=== PATIENT | male | born 1970 | race Caucasian/White ===

== ENCOUNTER 2024-05-23 07:58 | Outpatient (CLI) | payer OTHER, SELFPAY | END 2024-05-23 07:59 | disposition home or self-care (01) | PROVIDERS: PCP Family Medicine; Visit Provider Family Medicine | DX: R03.0 Elevated blood-pressure reading, without diagnosis of hypertension (principal); E66.01 Morbid (severe) obesity due to excess calories; Z12.5 Encounter for screening for malignant neoplasm of prostate; Z13.6 Encounter for screening for cardiovascular disorders; Z13.1 Encounter for screening for diabetes mellitus | CPT/HCPCS: 80053; 80061; G0103 ==

== ENCOUNTER 2024-05-30 07:11 | Outpatient (CLI) | payer OTHER, SELFPAY ==
--- NOTE | 2024-05-30 09:03 | P.ANES_ITS ---
Anesthesia Charges Start Date/Time Anesthesia Start Date: 05/30/24 Anesthesia Start Time: 08:23 Stop Date/Time Anesthesia Stop Date: 05/30/24 Anesthesia Stop Time: 08:56 Coding CPT Codes CPT Codes: ANES LWR INTST NDSC NOS - 06539 ([id number]) P3 - PATIENT W/SEVERE SYS DISEASE, QX - PROPOSAL SPECIALIST SVC W/ MD MED DIRECTION, QK - WEB PRODUCER 2-4 CNCRNT ANES PROC
--- NOTE | 2024-05-30 09:03 | W.ANESCHARGE ---
Anesthesia Charges Start Date/Time Anesthesia Start Date: 05/30/24 Anesthesia Start Time: 08:23 Stop Date/Time Anesthesia Stop Date: 05/30/24 Anesthesia Stop Time: 08:56 Coding CPT Codes CPT Codes: ANES LWR INTST NDSC NOS - 38974 ([id number]) P3 - PATIENT W/SEVERE SYS DISEASE, QX - BASIC SCIENCES DEAN SVC W/ MD MED DIRECTION, QK - DELINQUENT TAX COLLECTOR ASSISTANT 2-4 CNCRNT ANES PROC
--- NOTE | 2024-05-30 10:11 | P.ANES_ITS ---
Anesthesia Charges Start Date/Time Anesthesia Start Date: 05/30/24 Anesthesia Start Time: 08:23 Stop Date/Time Anesthesia Stop Date: 05/30/24 Anesthesia Stop Time: 08:56 Coding CPT Codes CPT Codes: ANES LWR INTST NDSC NOS - 73153 ([id number]) QK - NETWORK CONTROL OPERATORS SUPERVISOR 2-4 CNCRNT ANES PROC, QX - SALES REPRESENTATIVE BUSINESS COURSES SVC W/ MED DIRECTION, P3 - PATIENT W/SEVERE SYS DISEASE
--- NOTE | 2024-05-30 10:11 | W.ANESCHARGE ---
Anesthesia Charges Start Date/Time Anesthesia Start Date: 05/30/24 Anesthesia Start Time: 08:23 Stop Date/Time Anesthesia Stop Date: 05/30/24 Anesthesia Stop Time: 08:56 Coding CPT Codes CPT Codes: ANES LWR INTST NDSC NOS - 39989 ([id number]) QK - IRRIGATION EQUIPMENT INSTALLER 2-4 CNCRNT ANES PROC, QX - DRYWALL FINISHER SVC W/ MED DIRECTION, P3 - PATIENT W/SEVERE SYS DISEASE
== END 2024-05-30 07:12 | disposition home or self-care (01) ==
LOC: OP CLINIC 07:12
PROVIDERS: PCP Family Medicine; Visit Provider Surgery
DX: Z12.11 Encounter for screening for malignant neoplasm of colon (principal); D12.3 Benign neoplasm of transverse colon; K57.30 Diverticulosis of large intestine without perforation or abscess without bleeding
CPT/HCPCS: 00811; 45385; 88305; J2704

== ENCOUNTER 2024-06-02 18:41 | Emergency (ER) | payer OTHER, SELFPAY ==
[2024-06-02 18:52] VITALS: BP 153/93; PULSE 100; RESP 20; TEMP 36.5; O2SAT 99; BMI 41.1
--- NOTE | 2024-06-02 19:28 | CRLHL7_ITS ---
For Patients: As a result of the Cures Act, medical imaging exams and procedure reports are released immediately into your electronic medical record. You may view this report before your referring provider. If you have questions, please contact your health care provider. INDICATION: Cough. TECHNIQUE: Chest 2 views. COMPARISON: None. FINDINGS: Cardiovascular and mediastinum: Heart size and vasculature are normal in caliber and appearance. Lungs and pleural spaces: Lungs are clear. No sign of infiltrate or mass. No sign of pleural effusion. No pneumothorax. Bones and soft tissues: No significant findings. IMPRESSION: No acute or significant findings. Dictated by Bryan Mills MD @ 06/02/2024 9:23:17 PM (Electronically Signed)
--- NOTE | 2024-06-02 19:30 | ED.GENADULT ---
HPI - General Adult General Chief complaint: Shortness of Breath/Dyspnea Stated complaint: difficulty breathing Time Seen by Provider: 06/02/24 19:11 Source: patient Mode of arrival: ambulatory Limitations: no limitations History of Present Illness HPI narrative: 53-year-old male presenting today with a cough for approximately 1 week. Cough was productive but now is dry. Keeps him up at night. He states that he had chills earlier in the week but those have resolved. Denies any sick contacts that he is aware of. Patient does smoke just slightly over pack cigarettes per day. He is not take any medications. He does snore at night. And no diagnosis of sleep apnea. He states that his appetite is down his energy is down. He feels achy. Related Data Previous Rx's ?Medication ?Instructions ?Recorded benzonatate 100 mg capsule 100 mg PO BID-TID PRN cough #10 06/02/24 caps codeine 10 mg-guaifenesin 100 mg/5 5 ml PO Q6H PRN #118 mL 06/02/24 mL oral liquid (Guaifenesin AC) Allergies Allergy/AdvReac Type Severity Reaction Status Date / Time No Known Drug Allergies Allergy Verified 05/23/24 07:23 Review of Systems Status of ROS: Reports: 10 or more systems reviewed and unremarkable except as noted in History and below PFSH [facility] Medical History Ankle fracture ?S82.899A - Other fracture of unspecified lower leg, initial encounter for closed fracture (ICD-10) Surgical History History of ankle surgery ?Z98.890 - Other specified postprocedural states (ICD-10) Social History What is your current living situation?: I presently have a place to live Problems where you live: no known problems In the past 12 months, utilities in danger of being shut off: no In past 12 months, lack of transportation kept you from medical appts, meetings, work, or getting things needed for daily living: no In the past 12 mos, have been you worried that your food would run out before you had money to buy more?: never true In the past 12 mos, the food you bought just didn't last and you didn't have money to buy more?: never true How often does anyone, including family, friends and others, physically hurt you: never How often does anyone, including family, friends and others, insult or talk down to you: never How often does anyone, including family, friends and others, threaten you with harm: never How often does anyone, including family, friends and others, scream or curse at you: never Exam Narrative: Exam Narrative: Overweight, well-developed patient in no acute distress. Alert and oriented. Answers questions appropriately. Mood and affect are appropriate. Thoughts are goal oriented and rational. No tangential or magical thinking noted. Patient speaks in full sentences without needing to catch his breath. HEENT: Normocephalic atraumatic. Pupils are equally round reactive to light. Extraocular muscles are intact. Conjunctivae are moist without any icterus noted. Moist mucous membranes. Posterior pharynx is normal. Large uvula. Neck is soft without any lymphadenopathy or thyromegaly. No masses are appreciated. Cardiovascular: Heart is regular rate and rhythm S1 and S2 are present without any murmurs. Lungs: Clear to auscultation bilaterally no wheezes rhonchi or rales are appreciated. Patient takes deep breaths without any discomfort. Skin: Well perfused. Const: Vital Signs, click to edit/add: Vital Signs - 24 hr 06/02/24 18:52 Temperature 97.7 F Pulse Rate [Pulse Oximeter] 100 Respiratory Rate 20 Blood Pressure [Ri ght Upper Arm] 153/93 H Pulse Oximetry 99 Course Course ED Course: CBCs unremarkable. Triple swab is negative. Chest x-ray, read by me, does not show any acute infiltrates. Vital Signs Vital signs: Initial Vital Signs Temperature 97.7 F 06/02/24 18:52 Temperature Source Temporal Artery Scan 06/02/24 18:52 Pulse Rate 100 06/02/24 18:52 Respiratory Rate 20 06/02/24 18:52 Blood Pressure 153/93 H 06/02/24 18:52 Blood Pressure Mean 113 H 06/02/24 18:52 Blood Pressure Position Sitting 06/02/24 18:52 Pulse Oximetry 99 06/02/24 18:52 Vital Signs Temperature 97.7 F 06/02/24 18:52 Pulse Rate 100 06/02/24 18:52 Respiratory Rate 20 06/02/24 18:52 Blood Pressure 153/93 H 06/02/24 18:52 Pulse Oximetry 99 06/02/24 18:52 Temperature 97.7 F 06/02/24 18:52 Pulse Rate 100 06/02/24 18:52 Respiratory Rate 20 06/02/24 18:52 Blood Pressure 153/93 H 06/02/24 18:52 Pulse Oximetry 99 06/02/24 18:52 Medical Decision Making MDM Narrative Medical decision making narrative: 53-year-old male with a cough, likely viral in nature. Patient will be sent home with Tessalon Perles and guaifenesin with codeine. Follow-up with PCP in 1 week if needed. Lab Data Labs: Lab Results 06/02/24 06/02/24 Range/Units 19:18 19:36 WBC 11.89 H (4.50-11.00) K/uL RBC 4.51 (4.30-5.90) m/uL Hgb 14.1 (13.5-17.5) gm/dL Hct 42.4 (37.0-53.0) % MCV 94 (80-100) fL MCH 31 (26-34) pg MCHC 33 (32-36) gm/dL RDW Coeff of Norma 12.1 (11.5-15.5) % Plt Count 281 (140-440) K/uL Neut % (Auto) 68.3 (42.0-72.0) % Lymph % (Auto) 21.9 (20-44) % Emanuel % (Auto) 8.1 (0.0-11.0) % Eos % (Auto) 0.2 (0.0-7.0) % Baso % (Auto) 0.1 (0.0-3.0) % Neut # (Auto) 8.10 H (1.7-7.0) K/uL Lymph # (Auto) 2.60 (0.90-2.90) K/uL Emanuel # (Auto) 1.00 H (0.00-0.90) K/UL Eos # (Auto) 0.00 (0.00-0.50) K/uL Baso # (Auto) 0.00 (0.00-0.30) K/uL Abs Immat Gran (auto) 0.20 (0.00-0.30) K/uL Imm/Tot Granulo (auto) 1.4 % SARS-CoV-2 (PCR) Negative SARS-CoV-2 (Negative) Influenza Type A (PCR) Negative PCR FLU A (Negative) Influenza Type B (PCR) Negative PCR FLU B (Negative) RSV (PCR) Negative PCR RSV (Negative) Imaging Data Chest x-ray: Attestation: I have reviewed the pertinent imaging results. Radiologist's impression: Chest 2 views. COMPARISON: None. FINDINGS: Cardiovascular and mediastinum: Heart size and vasculature are normal in caliber and appearance. Lungs and pleural spaces: Lungs are clear. No sign of infiltrate or mass. No sign of pleural effusion. No pneumothorax. Bones and soft tissues: No significant findings. IMPRESSION: No acute or significant findings. Discharge Plan Discharge Clinical Impression: Cough Patient Disposition: Home, Self-Care Condition: Stable Additional Instructions: Tried taking Tessalon Perles as prescribed. If this does not work, try the guaifenesin - this medication contains codeine. Take your 1st dose of this medication before going to bed as it can make you drowsy. Do not operate heavy machinery if you take this medication. Expect cough to last a couple of weeks. Return to the ER if you develop difficulty breathing, shortness of breath or fever. Follow-up with your primary care provider in approximately 1 week. Prescriptions: New benzonatate 100 mg capsule 100 mg PO BID-TID PRN (Reason: cough) Qty: 10 0RF codeine-guaifenesin [Guaifenesin AC] 10-100 mg/5 mL liquid 5 ml PO Q6H PRNQty: 118 0RF Follow Up/Referrals: Isac Soto MD [Primary Care Provider] - Stand Alone Forms: [place] Info Instructions
[2024-06-02 19:42] LABS: Basophils Percent Auto 0.1 % (0.0-3.0); Eosinophils Percent Auto 0.2 % (0.0-7.0); Hematocrit 42.4 % (37.0-53.0); Hemoglobin* 14.1 gm/dL (13.5-17.5); Immature Granulocytes Pct Auto 1.4 %; Lymphocytes Percent Auto 21.9 % (20-44); Mean Corpuscular HGB Conc 33 gm/dL (32-36); Mean Corpuscular Hemoglobin 31 pg (26-34); Mean Corpuscular Volume 94 fL (80-100); Monocytes Percent Auto 8.1 % (0.0-11.0); Neutrophils Percent Auto 68.3 % (42.0-72.0); Platelet Count* 281 K/uL (140-440); RDW Coefficient of Variation % 12.1 % (11.5-15.5); Red Blood Count 4.51 m/uL (4.30-5.90); White Blood Count* 11.89 K/uL (4.50-11.00)
[2024-06-02 19:46] LABS: Slide Review Reflex No
[2024-06-02 20:13] LABS: PCR FLU A Negative PCR FLU A (Negative); PCR FLU B Negative PCR FLU B (Negative); PCR RSV Negative PCR RSV (Negative); SARS PCR* Negative SARS-CoV-2 (Negative)
== END 2024-06-02 21:50 | disposition home or self-care (01) ==
PROVIDERS: Emergency Provider Family Medicine; PCP Family Medicine
DX: R05.9 Cough, unspecified (principal)
CPT/HCPCS: 36415; 71046; 85025; 87631; 99284